=== PATIENT | male | born 1980 | race Caucasian/White ===

== ENCOUNTER 2017-04-03 18:14 | Day surgery (SDC) | payer OTHER ==
[~2017-04-03] VITALS: Ht 190.5 cm; Wt 151.0 kg
[~2017-04-03 18:14] MED LIST: FLOMAX0.4 MG PO; FLONASE16 G1 BOTH NARES; MUCUS RELIEF600 M1 PO; NAPROSYN500 MG PO; NO HOME MEDS; PERCOCET 7.51 TABLET PO; ROBITUSSIN NIG118 ML PO; TESSALON PERLE100 MG PO; ZOFRAN ODT8 MG PO
[2017-04-03 20:28] LABS: HEMATOCRIT 43.5 % (38.0-50.0); MCH 29.6 PG (29.0-34.0); MCHC 34.5 G/DL (30.0-36.0); MCV 85.8 FL (86-99); MEAN PLAT.VOLUME 10.5 uM^3 (9.0-12.4); PLATELET COUNT 225 K/uL (156-360); RBC DIS.WIDTH-CV 12.8 % (11.8-14.6); RBC DIS.WIDTH-SD 39.7 % (39-53); RED BLOOD COUNT 5.07 M/uL (4.00-5.50); WHITE BLOOD COUNT 16.3 K/uL (4.1-10.2)
[2017-04-03 20:35] LABS: INTER. NORMALIZED RATIO 1.1; PROTHROMBIN TIME 12.5 SEC (10.2-12.9)
[2017-04-03 20:37] LABS: CHLORIDE 108 mEq/L (99-109); PTT 23.4 SEC (25-37); SODIUM 141 mEq/L (136-147)
[2017-04-03 20:39] LABS: GLUCOSE 116 mg/dL (70-99)
[2017-04-03 20:40] LABS: ANION GAP 15 MEQ/L (2-14)
[2017-04-03] MEDS ORDERED: QSYMIA 3.75 MG1 EACH PO (20:40)
[2017-04-03 20:42] LABS: GFR ESTIMATE (CALCULATED) 48 mL/min/
[2017-04-03 20:43] LABS: UREA NITROGEN (BUN) 18 mg/dL (9-23)
[2017-04-04 01:06] VITALS: BP 139/66
[2017-04-04 03:57] VITALS: BP 163/88
[2017-04-04 07:25] VITALS: BP 157/101
[2017-04-04 11:08] VITALS: BP 158/95
[2017-04-04 16:58] VITALS: BP 135/70
== END 2017-04-04 20:23 | disposition home or self-care (01) ==
LOC: EME 18:14 → TRA 18:14 → SDC 22:05 → 2SOUTH 23:00 → ENRESERV 23:46 → 2EAST 04-04 00:29
PROVIDERS: Emergency Medicine
PROC: 0SSFXZZ Reposition Right Ankle Joint, External Approach (ICD-10-PCS; principal; 2017-04-03)
DX: S93.04XA Dislocation of right ankle joint, initial encounter (principal); X50.1XXA Overexertion from prolonged static or awkward postures, initial encounter; Y93.01 Activity, walking, marching and hiking; Y99.0 Civilian activity done for income or pay; I10 Essential (primary) hypertension; E66.9 Obesity, unspecified; Z68.36 Body mass index [BMI] 36.0-36.9, adult; F41.9 Anxiety disorder, unspecified
CPT/HCPCS: 73600; 76000; 80048; 85027; 85610; 85730; 86900; 86901; 99281; 99285; G0378; G8978 GP CJ; G8979 GP CH; J0690; J1885; J2250; J2270; J2405; J3010; J7030; J7050; J7120

== ENCOUNTER 2017-04-07 13:47 | Emergency (ER) | payer OTHER ==
[~2017-04-07] VITALS: Ht 190.5 cm; Wt 147.9 kg
[~2017-04-07 13:47] MED LIST changes: +QSYMIA 3.75 MG1 EACH PO
[2017-04-07 15:03] LABS: MCH 29.9 PG (29.0-34.0); MCHC 34.1 G/DL (30.0-36.0); MCV 87.6 FL (86-99); MEAN PLAT.VOLUME 10.2 uM^3 (9.0-12.4); PLATELET COUNT 198 K/uL (156-360); RBC DIS.WIDTH-CV 12.6 % (11.8-14.6); RBC DIS.WIDTH-SD 40.7 % (39-53); RED BLOOD COUNT 4.68 M/uL (4.00-5.50); WHITE BLOOD COUNT 9.5 K/uL (4.1-10.2)
[2017-04-07 15:13] LABS: CHLORIDE 110 mEq/L (99-109); POTASSIUM 4.3 mEq/L (3.7-5.4); SODIUM 141 mEq/L (136-147)
[2017-04-07 15:15] LABS: GLUCOSE 115 mg/dL (70-99)
[2017-04-07 15:16] LABS: ANION GAP 9 MEQ/L (2-14)
[2017-04-07 15:18] LABS: GFR ESTIMATE (CALCULATED) > 59 mL/min/
[2017-04-07 15:19] LABS: UREA NITROGEN (BUN) 12 mg/dL (9-23)
[2017-04-07 17:59] LABS: ADD MIUA? NO; BILIRUBIN NEGATIVE; BLOOD NEGATIVE; COLOR STRAW ((YELLOW)); GLUCOSE (STRIP) NEGATIVE; KETONES NEGATIVE; LEUKOCYTES NEGATIVE; NITRITE NEGATIVE; PROTEIN (STRIP) NEGATIVE; SPECIFIC GRAVITY 1.004 (1.000-1.030); UCUL ADDED? NO; UROBILINOGEN 0.2 MG/DL (0.2-1.0)
[2017-04-07] MEDS ORDERED: SKELAXIN800 MG PO (19:32)
[2017-04-07 19:55] VITALS: BP 156/92
== END 2017-04-07 19:56 | disposition home or self-care (01) ==
LOC: EME 13:47
PROVIDERS: Physician Assistant
PROC: 3E0S3GC Introduction of Other Therapeutic Substance into Epidural Space, Percutaneous Approach (ICD-10-PCS; principal; 2017-04-07)
DX: T88.59XA Other complications of anesthesia, initial encounter (principal); G44.40 Drug-induced headache, not elsewhere classified, not intractable; M79.1 Myalgia
CPT/HCPCS: 80048; 81003; 85027; 99281; 99285; C1755; J3010; J7030